=== PATIENT | male | born 1970 | race Hispanic/Latino ===

== ENCOUNTER 2022-05-13 09:26 | Emergency (ER) | payer SELFPAY ==
[~2022-05-13] VITALS: Ht 160 cm; Wt 81.6 kg
[2022-05-13] MEDS ORDERED: FAMOTIDINE 20 MG/2 ML VIAL IV STA (10:11)
[2022-05-13] MEDS ORDERED: KETOROLAC TROMETHAMINE 30 MG/ML VIAL IV STA (10:11)
[2022-05-13] MEDS ORDERED: SODIUM CHLORIDE 0.9% 1000ML 1,000 ML IV SCH (10:15)
[2022-05-13] MEDS ORDERED: KETOROLAC TROMETHAMINE 30 MG/ML VIAL ONE (10:35)
[2022-05-13] MEDS ORDERED: FAMOTIDINE 20 MG/2 ML VIAL IV ONE (10:35)
[2022-05-13] MEDS ORDERED: SODIUM CHLORIDE 0.9% 1000ML 1,000 ML ONE (10:35)
== END 2022-05-13 11:32 | disposition home or self-care (01) ==
LOC: FSED 09:58
DX: R07.89 Other chest pain (principal); K21.9 Gastro-esophageal reflux disease without esophagitis; R19.7 Diarrhea, unspecified
CPT/HCPCS: 71046; 80048; 80076; 81003; 82553; 84484; 85025; 93005; 96374; 96376; 99283; J1885; J7030